=== PATIENT | male | born 1980 | race African-American/Black ===

== ENCOUNTER 2021-10-31 23:19 | Emergency (ER) | payer BC, SELFPAY ==
--- NOTE | ~2021-10-31 | CT_ITS ---
EXAMINATION: CT brain wo con EXAM DATE: 11/01/2021 01:25 INDICATION: Altered mental status. TECHNIQUE: Spiral CT of the head was performed without contrast. Axial, coronal and sagittal images were reviewed. The dose-length product (DLP) for this examination was 908.00 mGy-cm. The exposure w as tailored according to patient size, and iterative reconstruction (ASIR) was used as additional dos e reduction technique. There is no prior study for comparison. FINDINGS: Study is limited due to patient motion, patient was rescanned but the vertex not imaged. T here is no acute intraparenchymal hemorrhage. No evidence of intraparenchymal brain mass lesion. No evidence of acute infarction. There is no mass effect or midline shift. The ventricles are normal in size. There are no extra-axial collections. There are no acute calvarial fractures. Patient has had right-sided ocular lens surgery. Soft tissue is unremarkable. The visualized sinuses and mastoi d air cells are well aerated. IMPRESSION: Limited study without acute intracranial findings. Reviewed, dictated and finalized at location D. TER CONTROL OPERATOR
--- NOTE | 2021-10-31 23:34 | PC.NURSE ---
pt refused @ 8230 for blood draw, said no one is allowed to do so.
[2021-11-01] VITALS: BP 160/131; PULSE 112; RESP 20; TEMP 36.7; O2SAT 97
--- NOTE | 2021-11-01 00:01 | ED.PSYCH ---
HPI - Psych General Chief Complaint: Psychiatric Symptoms Stated Complaint: PSYCH Time Seen by Provider: 10/31/21 23:50 Source: patient, family and EMS Mode of arrival: EMS Limitations: altered mental status History of Present Illness HPI Narrative: Patient is a 40-year-old male brought in by EMS due to agitation, talking out of his mind, not making sense that started tonight. states that patient has not slept in days due to his erratic work schedule. Patient denies any suicidal homicidal thoughts. Patient denies any auditory or visual hallucinations. Related Data Allergies Allergy/AdvReac Type Severity Reaction Status Date / Time BEE STINGS Allergy Mild Uncoded 02/01/04 13:48 NKDA Allergy Mild Uncoded 03/03/10 13:15 Review of Systems Review of Systems: All systems reviewed & are unremarkable except as noted in HPI and below Constitutional: Constitutional: Denies body ache(s), Denies chills, Denies excessive sweating, Denies fatigue, Denies fever(s), Denies headache(s), Denies lethargy, Denies malaise, Denies weakness and Denies weight loss Eyes: Eyes: Denies blurry vision, Denies change in vision and Denies loss of vision ENT: Denies dizziness, Denies ear discharge, Denies headache(s), Denies lip swelling, Denies epistaxis, Denies nasal congestion, Denies neck pain, Denies throat swelling and Denies tongue swelling Cardiovascular: Cardiovascular: Denies chest pain, Denies chest pain at rest, Denies chest pain with activity, Denies diaphoresis, Denies rapid heart rate, Denies edema, Denies irregular heart rhythm, Denies lightheadedness, Denies palpitations, Denies dyspnea and Denies dyspnea on exertion Respiratory: Respiratory: Denies chest congestion, Denies cough, Denies hemoptysis, Denies dyspnea and Denies dyspnea on exertion Gastrointestinal: Gastrointestinal: Denies abdominal pain, Denies melena, Denies hematochezia, Denies diarrhea, Denies nausea, Denies vomiting and Denies hematemesis Musculoskeletal: Musculoskeletal: Denies abnormal gait, Denies deformity, Denies joint swelling, Denies limited range of motion, Denies neck pain and Denies numbness Neurologic: Denies Abnormal speech present, Denies abnormal gait, Denies confusion, Denies dizziness, Denies headache(s), Denies focal weakness, Denies loss of vision, Denies numbness, Denies Other visual disturbances, Denies Sensory deficit (Neuro) and Denies weakness Psychiatric: Psychiatric: Denies confusion, Denies depression, Denies auditory hallucinations, Denies homicidal ideation and Denies suicidal ideation Endocrine: Endocrine: Denies cold intolerance, Denies excessive sweating, Denies fatigue, Denies heat intolerance and Denies palpitations Hematologic/Lymphatic: Hematologic/Lymphatic: Denies easy bleeding and Denies easy bruising Allergic/Immunologic: Allergic/Immunologic: Denies lip swelling, Denies throat swelling and Denies tongue swelling PMFSH Comments Past medical history: None Family history: Unknown Social history: Non-smoker no EtOH or drug use Exam Const: General: cooperative, healthy appearing, comfortable, no acute distress, well developed, alert, awake and confusion Orientation/consciousness: oriented to person and No confusion Limitations: no limitations Other: Agitated, not oriented to time and place HENMT: Head: normal to inspection, normocephalic and atraumatic Ears: hearing grossly normal bilaterally, TM normal on the right and TM normal on the left General nose exam: Normal external nose present, Normal nares present and No nasal discharge present Face and sinus: normal facial exam Mouth: Yes Normal oral and palatal mucosa present, Yes lip normal, Yes tongue normal and Yes oropharynx normal Throat: posterior oropharynx normal, tonsils normal and uvula midline Eyes: General: appearance normal, both eyes and all related structures Pupils: Equal, round and reactive pupils present EOM: EOMs intact bilaterally Neck: Neck: normal visual
[2021-11-01] MEDS: diphenhydrAMINE HCl CAP 25 MG CAPSULE 50 MG PO (00:15)
[2021-11-01] MEDS: LORazepam (*CRX) 1 MG TABLET 2 MG PO (00:16)
[2021-11-01 00:35] LABS: Basophils Percent Auto 0.2 % (0.2-1.2); Hematocrit 44.9 % (42.0-52.0); Hemoglobin 14.9 g/dL (14.0-18.0); Immature Granulocyte Absolute 0.01 K/mm3 (0.00-0.031); Immature Granulocyte Percent A 0.2 % (0-0.5); Lymphocytes Absolute Auto 1.48 K/mm3 (0.9-3.2); Lymphocytes Percent Auto 26.3 % (18.3-44.2); Mean Corpuscular HGB Conc 33.2 g/dl (32-36); Mean Corpuscular Hemoglobin 28.7 pg (26-34); Mean Corpuscular Volume 86.3 fl (80-100); Mean Platelet Volume 11.2 fl (7.4-10.4); Monocytes Absolute Auto 0.7 K/mm3 (0.1-0.6); Monocytes Percent Auto 13.2 % (2.6-8.5); Neutrophils Absolute Auto 3.4 K/mm3 (1.3-6.7); Neutrophils Percent Auto 60.1 % (45.5-73.1); Platelet Count Result 172 k/mm3 (150-375); Red Cell Distribution Width 14.2 % (11.5-14.5); White Blood Count 5.6 K/mm3 (4.5-10.0)
[2021-11-01 00:47] LABS: Ethanol < 10 mg/dL (<10)
[2021-11-01 00:48] LABS: Alanine Aminotransferase 22 U/L (4-50); Albumin Level 4.7 g/dL (3.5-5.1); Alkaline Phosphatase 77 U/L (38-126); Anion Gap 10 mmol/L (8-16); Aspartate Amino Transferase 40 U/L (17-59); Bilirubin,Total 0.9 mg/dL (0.2-1.3); Blood Urea Nitrogen 8 mg/dL (9-20); Calcium 9.8 mg/dL (8.4-10.2); Carbon Dioxide 25 mmol/L (22-30); Chloride 102 mmol/L (98-107); Estimated Glomerular Filt Rate > 60; Glucose 129 mg/dL (65-110); Sodium 137 mmol/L (137-145)
[2021-11-01 04:52] LABS: SARS-CoV-2 RNA PCR Negative
[2021-11-01 05:02] LABS: Mucus Urine Rare /lpf; WBC Urine 0-3 /hpf
[2021-11-01 05:04] LABS: Appearance Urine Clear (Clear); Color Urine Light Yellow (Yellow)
[2021-11-01 05:05] LABS: Blood Urine Negative (Negative); Glucose Urine UA Negative (Negative); Ketones Urine Negative (Negative); Protein Urine Negative (Negative); Specific Grav Ur 1.015 (1.001-1.035)
[2021-11-01 05:06] LABS: Add Urine Microscopic? NO; Bilirubin Urine Negative (Negative); Leukocyte Esterase Ur Negative LEU/UL (Negative); Nitrate Urine Negative (Negative)
[2021-11-01 06:04] LABS: Amphetamine Screen Urine Negative (Negative); Barbiturate Screen Urine Negative (Negative); Benzodiazepines Screen Urine Positive (Negative); Cannabinoid Screen Urine Negative (Negative); Cocaine Screen Urine Negative (Negative); Methadone Screen Urine Negative (Negative); Opiate Screen Urine Negative (Negative); Phencyclidine Screen Urine Negative (Negative)
--- NOTE | 2021-11-01 06:54 | ED.PSYCH ---
HPI - Psych General Chief Complaint: Psychiatric Symptoms <Bryan Buenrostro MD - Last Filed: 11/01/21 08:25> Stated Complaint: PSYCH <Bryan Buenrostro MD - Last Filed: 11/01/21 08:25> Time Seen by Provider: 10/31/21 23:50 <Bryan Buenrostro MD - Last Filed: 11/01/21 08:25> Source: patient, family and EMS <Bryan Buenrostro MD - Last Filed: 11/01/21 08:25> Mode of arrival: EMS <Bryan Buenrostro MD - Last Filed: 11/01/21 08:25> History of Present Illness HPI Narrative: Please see HPI and Dr. Cuevas's note for detailed history <Bryan Buenrostro MD - Last Filed: 11/01/21 08:25> Related Data Allergies/Adverse Reactions: Allergies Allergy/AdvReac Type Severity Reaction Status Date / Time BEE STINGS Allergy Mild Uncoded 02/01/04 13:48 NKDA Allergy Mild Uncoded 03/03/10 13:15 <Bryan Buenrostro MD - Last Filed: 11/01/21 08:25> PMFSH Social History Social History: Social History Substance use type: unknown <Bryan Buenrostro MD - Last Filed: 11/01/21 08:25> Course Reevaluation(s) Reevaluation #1: Received signout on the patient pending CT head and urine CT head was limited but unremarkable patient is medically stable and appropriate for crisis evaluation. Patient signed out to Dr. Gordon Pending Crisis evaluatoin <Bryan Buenrostro MD - Last Filed: 11/01/21 08:25> Currently patient is asymptomatic, denies any suicidal or homicidal ideation, feeling okay to go home, at the bedside who agreed with the discharge plan. <Laura Gordon MD - Last Filed: 11/01/21 10:06> Date: 11/01/21 <Bryan Buenrostro MD - Last Filed: 11/01/21 08:25> 11/01/21 <Laura Gordon MD - Last Filed: 11/01/21 10:06> Time: 06:54 <Bryan Buenrostro MD - Last Filed: 11/01/21 08:25> 10:04 <Laura Gordon MD - Last Filed: 11/01/21 10:06> Vital Signs Vital signs: Vital Signs Temperature 36.7 C 11/01/21 00:00 Pulse Rate 112 H 11/01/21 00:00 Respiratory Rate 20 11/01/21 00:00 Blood Pressure 160/131 H 11/01/21 00:00 Pulse Oximetry 97 11/01/21 00:00 Temperature 36.7 C 11/01/21 00:00 Pulse Rate 112 H 11/01/21 00:00 Respiratory Rate 20 11/01/21 00:00 Blood Pressure 160/131 H 11/01/21 00:00 Pulse Oximetry 97 11/01/21 00:00 <Bryan Buernostro MD - Last Filed: 11/01/21 08:25> Vital Signs Temperature 36.7 C 11/01/21 00:00 Pulse Rate 112 H 11/01/21 00:00 Respiratory Rate 20 11/01/21 00:00 Blood Pressure 160/131 H 11/01/21 00:00 Pulse Oximetry 97 11/01/21 00:00 Temperature 36.7 C 11/01/21 00:00 Pulse Rate 112 H 11/01/21 00:00 Respiratory Rate 20 11/01/21 00:00 Blood Pressure 160/131 H 11/01/21 00:00 Pulse Oximetry 97 11/01/21 00:00 <Laura Gordon MD - Last Filed: 11/01/21 10:06> MDM - Psych Lab Data Result diagrams: : 11/01/21 00:29 11/01/21 00:29 <Bryan Buenrostro MD - Last Filed: 11/01/21 08:25> Labs: Lab Results 10/31/21 10/31/21 10/31/21 Range/Units 03:52 03:52 03:52 WBC (4.5-10.0) K/mm3 RBC (4.6-6.20) M/mm3 Hgb (14.0-18.0) g/dL Hct (42.0-52.0) % MCV (80-100) fl MCH (26-34) pg MCHC (32-36) g/dl RDW (11.5-14.5) % Plt Count (150-375) k/mm3 MPV (7.4-10.4) fl Immature Gran % (Auto) (0-0.5) % Neut % (Auto) (45.5-73.1) % Lymph % (Auto) (18.3-44.2) % [place] % (Auto) (2.6-8.5) % Eos % (Auto) (0-4.4) % Baso % (Auto) (0.2-1.2) % Lymph # (Auto) (0.9-3.2) K/mm3 [place] # (Auto) (0.1-0.6) K/mm3 Eos # (Auto) (0-0.3) K/mm3 Baso # (Auto) (0.0-0.1) K/mm3 Abs Immat Gran (auto) (0.00-0.031) K/mm3 Absolute Neuts (auto) (1.3-6.7) K/mm3 Absolute Nucleated RBC (0.0-0.012) K/mm3 Nucleated RBC % (0.0-0.2) % Sodium (137-145) mmol/L Potassium (3.4-5.0) mmol/L Chloride (98-107) mmol/L Carbon Dioxide (22-30) mmol/
--- NOTE | 2021-11-01 07:29 | PC.NURSE ---
Pt care resumed by this RN. Pt resting on stretcher with family at bedside. Pt calm and cooperative at this time.
--- NOTE | 2021-11-01 07:40 | PC.NURSE ---
Pt is medically cleared per Dr. Buenrostro.
--- NOTE | 2021-11-01 08:45 | PC.NURSE ---
Crisis at bedside.
--- NOTE | 2021-11-01 09:36 | PC.NURSE ---
Crisis was able to make a safety plan with pt and pt is cleared for discharge.
[2021-11-01 10:14] VITALS: BP 148/99; PULSE 109; RESP 16; O2SAT 100
== END 2021-11-01 10:16 | disposition home or self-care (01) ==
PROVIDERS: Emergency Medicine; Emergency Provider Emergency Medicine
DX: F29 Unspecified psychosis not due to a substance or known physiological condition (principal); Z20.822 Contact with and (suspected) exposure to COVID-19
CPT/HCPCS: 36415; 70450; 80053; 80307; 81003; 84443; 85025; 99284; A9270; C9803; U0003; U0005

== ENCOUNTER → 2023-02-04 09:17 | Outpatient (CLI) | payer BC, SELFPAY ==
--- NOTE | ~2023-02-04 | MR_ITS ---
MRI of the left lower extremity CLINICAL HISTORY: Injury TECHNIQUE: Sagittal T1-weighted and STIR images, coronal T1-weighted and STIR images, and axial T1-we ighted and STIR images were acquired through the proximal left calf. FINDINGS: Bone marrow signals are unremarkable. No fracture, marrow edema, or periosteal reaction. No evidence for osteomyelitis. There is fluid deep to the medial head of the gastrocnemius muscle, superficial to the soleus muscle, tracking along fascial planes. Appearance is most consistent with plantaris tendon rupture. Remainin g muscle signals are unremarkable. Remaining tendons appear intact. Subcutaneous soft tissues are unr emarkable. IMPRESSION: Findings most consistent with plantaris tendon rupture, as detailed above. Reviewed, dictated and finalized at location .
== END ==
PROVIDERS: PCP Family Medicine; Visit Provider Nurse Practitioner Family
DX: S89.92XA Unspecified injury of left lower leg, initial encounter (principal); X58.XXXA Exposure to other specified factors, initial encounter
CPT/HCPCS: 73718

== ENCOUNTER 2025-06-14 09:58 | Outpatient (CLI) | payer BC, SELFPAY ==
--- NOTE | ~2025-06-14 | XR_ITS ---
EXAMINATION: XR elbow RT min 3V, 06/14/2025 10:11 CDT HISTORY: pain in elbow x 1 year, no inj, no surgery COMPARISON: No comparisons available. Findings: No acute fracture or malalignment. Moderate degenerative changes Soft tissues unremarkable. Impression: No acute fracture or malalignment. Reviewed, dictated and finalized at location A. Impression: No acute fracture or malalignment.
== END 2025-06-14 09:59 | disposition home or self-care (01) ==
LOC: GOSHIMG 09:58
PROVIDERS: PCP Orthopaedic Surgery; Visit Provider Family Medicine
DX: M25.521 Pain in right elbow (principal)
CPT/HCPCS: 73080